=== PATIENT | male | born 1950 | race Caucasian/White ===

== ENCOUNTER 2017-04-03 11:37 | Emergency (ER) | payer MEDICARE ==
[2017-04-03 11:52] VITALS: BMI 34.9
[2017-04-03 11:53] VITALS: BP 165/88; PULSE 94; RESP 16; TEMP 98.5; O2SAT 96
[2017-04-03] MEDS ORDERED: Oxycodone/Acetaminophen 5/325 mg Tab PO STA (12:21)
--- NOTE | 2017-04-03 12:30 | ED PDOC ---
Lower Extremity Pain/Injury Time Seen by Provider: 04/03/17 12:04 Chief Complaint (Nursing): Lower Extremity Problem/Injury Chief Complaint (Provider): Lower extremity problem History Per: Patient History/Exam Limitations: no limitations Onset/Duration Of Symptoms: Days (x2 weeks) Additional Complaint(s): Zack Wells is a 66 year old male, with no past medical history, who presents to the emergency department complaining of a constant right knee pain onset for 2 weeks. Patient states he couldn't see last night because of the pain. He took tylenol with no relief. Patient took his blood pressure at home and it was high which prompted him to visit the ER. When he got here his blood pressure was better. Patient denies trauma, paresthesia or numbness. PMD: None provided. Past Medical History Reviewed: Historical Data, Nursing Documentation, Vital Signs Vital Signs: Last Vital Signs Temp 98.5 F 04/03/17 11:52 Pulse 94 H 04/03/17 11:52 Resp 16 04/03/17 11:52 BP 165/88 H 04/03/17 11:52 Pulse Ox 96 04/03/17 11:52 - Medical History PMH: HTN, Hypercholesterolemia - Surgical History Surgical History: Appendectomy - Family History Family History: States: Unknown Family Hx - Social History Current smoker - smoking cessation education provided: Yes (Some days) Alcohol: Social Drugs: Denies - Home Medications Home Medications: Ambulatory Orders Medication Instructions Recorded Dicyclomine [Bentyl] 20 mg PO Q12 PRN #20 tab 09/17/14 Ondansetron [Zofran Odt] 4 mg PO Q6 PRN #12 odt 09/17/14 Naproxen [Naprosyn] 500 mg PO BID PRN #20 tablet 12/11/15 Acetaminophen with Codeine 1 tab PO Q6H PRN #10 tab 04/03/17 [Tylenol with Codeine No. 3 300 mg-30 mg] Naproxen [Naprosyn] 500 mg PO BID PRN #15 tablet 04/03/17 - Allergies Allergies/Adverse Reactions: Allergies Allergy/AdvReac Type Severity Reaction Status Date / Time No Known Allergies Allergy Verified 09/16/14 21:44 Review of Systems ROS Statement: Except As Marked, All Systems Reviewed And Found Negative Constitutional: Negative for: Other (trauma) Musculoskeletal: Positive for: Leg Pain (right knee pain) Neurological: Negative for: Numbness, Other (Paresthesia) Physical Exam - Reviewed Nursing Documentation Reviewed: Yes Vital Signs Reviewed: Yes - Physical Exam Appears: Positive for: Well, Non-toxic, No Acute Distress (No painful distress) Head Exam: Positive for: ATRAUMATIC, NORMAL INSPECTION, NORMOCEPHALIC Skin: Positive for: Normal Color, Warm, Dry Eye Exam: Positive for: Normal appearance Neck: Positive for: Normal, Painless ROM, Supple Cardiovascular/Chest: Positive for: Regular Rate, Rhythm. Negative for: Murmur Respiratory: Positive for: Normal Breath Sounds. Negative for: Respiratory Distress Pulses-Dorsalis Pedis (L): 2+ Pulses-Dorsalis Pedis (R): 2+ Back: Positive for: Normal Inspection (No midline tenderness). Negative for: L CVA Tenderness, R CVA Tenderness Extremity: Positive for: Tenderness (right medial knee tenderness w/ minimal edema. ). Negative for: Other (No cap tenderness. Sensation intact ) Neurologic/Psych: Positive for: Alert, Oriented. Negative for: Motor/Sensory Deficits - ECG O2 Sat by Pulse Oximetry: 96 (RA) Pulse Ox Interpretation: Normal Medical Decision Making Medical Decision Making: Initial Impressin: Knee pain Initial Plan: --Knee 3 views Right [RAD] --Toradol 30 mg IM --Percocet 5/325 mg Tab 1 tab PO --reevaluation 1450 Right Knee X-Ray FINDINGS: BONES: Normal. No fracture. JOINTS: Normal. No osteoarthritis. JOINT EFFUSION: None. OTHER FINDINGS: None. IMPRESSION: Normal radiographs of the right knee. Scribe Attestation: Documented by Howard Chao, acting as a scribe for Melinda Carson MD Provider Scribe Attestation: All medical record entries made by the Scribe were at my direction and personally dictated by me. I have reviewed the chart and agree that the record accurately reflects my personal performance of the history, physical exam, medical decision making, and the department course for this patient. I have also personally directed, reviewed, and agree with the discharge instructions and disposition. Disposition - Clinical Impression Clinical Impression: Knee pain - Disposition Referrals: [facility] [Outside] Disposition: Routine/Home Disposition Time: 15:05 Condition: STABLE Prescriptions: Acetaminophen with Codeine [Tylenol with Codeine No. 3 300 mg-30 mg] 1 tab PO Q6H PRN #10 tab PRN Reason: Pain, Severe (8-10) Naproxen [Naprosyn] 500 mg PO BID PRN #15 tablet PRN Reason: Pain, Moderate (4-7) Instructions: Arthralgia (ED) Forms: [employer] (Yi) Print Language: CHINESE
[2017-04-03] MEDS ORDERED: Oxycodone/Acetaminophen 5/325 mg Tab ONE (12:56)
--- NOTE | 2017-04-03 14:51 | RAD ---
PROCEDURE: Right Knee Radiographs. HISTORY: Knee pain X 2 weeks COMPARISON: None. FINDINGS: BONES: Normal. No fracture. JOINTS: Normal. No osteoarthritis. JOINT EFFUSION: None. OTHER FINDINGS: None. IMPRESSION: Normal radiographs of the right knee.
== END 2017-04-03 15:16 | disposition home or self-care (01) ==
LOC: H.ER 11:37
DX: M25.561 Pain in right knee (principal)
CPT/HCPCS: 73562; 96372; 99283; J1885

== ENCOUNTER 2018-02-14 14:10 | Emergency (ER) | payer MEDICARE ==
[2018-02-14 14:10] VITALS: BMI 34.9
[2018-02-14 14:22] VITALS: RESP 16; TEMP 98; O2SAT 98
--- NOTE | 2018-02-14 15:28 | ED PDOC ---
HPI: Hypertension/Hypotension Time Seen by Provider: 02/14/18 15:12 Chief Complaint (Nursing): High Blood Pressure Chief Complaint (Provider): Dizziness History Per: Patient History/Exam Limitations: no limitations Onset/Duration Of Symptoms: Hrs Current Symptoms Are (Timing): Still Present Associated Symptoms: Dizziness, Other (shortness of breath) Additional History Per: Patient Additional Complaint(s): 67yo male, history of hypertension (not on medications), comes to ER for evaluation of dizziness earlier today when he changed position from laying down to sitting up. Patient states he felt short of breath as well but currently states he is asymptomatic. He denies any headache, chest pain, nausea or vomiting. He has no additional medical complaints. PMD: None Past Medical History Reviewed: Historical Data, Nursing Documentation, Vital Signs Vital Signs: Last Vital Signs Temp 98.0 F 02/14/18 14:20 Pulse 89 02/14/18 14:20 Resp 16 02/14/18 14:20 BP 136/77 02/14/18 14:20 Pulse Ox 98 02/14/18 14:20 - Medical History PMH: HTN, Hypercholesterolemia - Surgical History Surgical History: Appendectomy - Family History Family History: States: No Known Family Hx - Living Arrangements Living Arrangements: With Family - Home Medications Home Medications: Ambulatory Orders Medication Instructions Recorded Dicyclomine [Bentyl] 20 mg PO Q12 PRN #20 tab 09/17/14 Ondansetron [Zofran Odt] 4 mg PO Q6 PRN #12 odt 09/17/14 Naproxen [Naprosyn] 500 mg PO BID PRN #20 tablet 12/11/15 Acetaminophen with Codeine 1 tab PO Q6H PRN #10 tab 04/03/17 [Tylenol with Codeine No. 3 300 mg-30 mg] Naproxen [Naprosyn] 500 mg PO BID PRN #15 tablet 04/03/17 - Allergies Allergies/Adverse Reactions: Allergies Allergy/AdvReac Type Severity Reaction Status Date / Time No Known Allergies Allergy Verified 09/16/14 21:44 Review of Systems ROS Statement: Except As Marked, All Systems Reviewed And Found Negative Constitutional: Negative for: Fever, Chills Cardiovascular: Negative for: Chest Pain Respiratory: Positive for: Shortness of Breath (now resolved) Gastrointestinal: Negative for: Vomiting, Diarrhea Neurological: Positive for: Dizziness (now resolved). Negative for: Headache Physical Exam - Reviewed Nursing Documentation Reviewed: Yes Vital Signs Reviewed: Yes - Physical Exam Appears: Positive for: Non-toxic, No Acute Distress Head Exam: Positive for: ATRAUMATIC, NORMAL INSPECTION, NORMOCEPHALIC Skin: Positive for: Normal Color Eye Exam: Positive for: Normal appearance, EOMI, PERRL. Negative for: Nystagmus Neck: Positive for: Normal, Supple Cardiovascular/Chest: Positive for: Regular Rate, Rhythm. Negative for: Murmur Respiratory: Positive for: Normal Breath Sounds. Negative for: Wheezing Pulses-Radial (L): 2+ Pulses-Radial (R): 2+ Gastrointestinal/Abdominal: Positive for: Normal Exam, Soft. Negative for: Tenderness, Guarding, Rebound Back: Positive for: Normal Inspection Extremity: Positive for: Normal ROM. Negative for: Pedal Edema Neurologic/Psych: Positive for: Alert, Oriented. Negative for: Motor/Sensory Deficits - Laboratory Results Result Diagrams: 02/14/18 16:00 02/14/18 16:00 - ECG ECG: Positive for: Interpreted By Me, Viewed By Me ECG Rhythm: Positive for: Normal QRS, Normal ST Segment, Sinus Rhythm, 1st Degree Heart Block Rate: 71 O2 Sat by Pulse Oximetry: 98 (RA) Pulse Ox Interpretation: Normal - Progress Re-evaluation Time: 19:06 Condition: Re-examined, Improved Medical Decision Making Medical Decision Making: Impression: Dizziness Differential: Hypertensive urgency, BPV, less likely central vertigo associated with posterior cerebellar circulation Plan: -- Labs -- EKG -- CT head w/o contrast 1443 CT Head FINDINGS: HEMORRHAGE: No intracranial hemorrhage. BRAIN: Chao-white matter differentiation is preserved. There is no mass, mass effect or abnormal extra-axial fluid collection. There is no territorial infarction. The midline sagittal structures are normal. VENTRICLES: The ventricles are normal in size, shape and configuration. CALVARIUM: The skull base and calvarium are normal. PARANASAL SINUSES: There is mild mucosal thickening in the right inferior maxillary sinus. The remaining included paranasal sinuses are clear. MASTOID AIR CELLS: Predominantly clear. OTHER FINDINGS: None. IMPRESSION: No acute intracranial abnormality. Scribe Attestation: Documented by Ashley Luevano, acting as a scribe for Rm Lemon MD. Provider Scribe Attestation: All medical record entries made by the Jose Gibe were at my direction and personally dictated by me. I have reviewed the chart and agree that the record accurately reflects my personal performance of the history, physical exam, medical decision making, and the department course for this patient. I have also personally directed, reviewed, and agree with the discharge instructions and disposition. Disposition - Clinical Impression Clinical Impression: Dizziness - Patient ED Disposition Is Patient to be Admitted: No Doctor Will See Patient In The: Office Counseled Patient/Family Regarding: Studies Performed, Diagnosis, Need For Followup - Disposition Referrals: [facility] [Outside] Disposition: Routine/Home Disposition Time: 19:06 Condition: GOOD Additional Instructions: Return for worsening. Follow up with your PCP in 2-3 days. Instructions: Dizziness, Nonvertigo, (DC), High Blood Pressure in Adults
--- NOTE | 2018-02-14 15:59 | CT ---
Date of service: 02/14/2018 PROCEDURE: CT HEAD WITHOUT CONTRAST. HISTORY: Dizziness COMPARISON: None available. TECHNIQUE: Axial computed tomography images were obtained through the head/brain without intravenous contrast. Radiation dose: Total exam DLP = 833.91 mGy-cm. This CT exam was performed using one or more of the following dose reduction techniques: Automated exposure control, adjustment of the mA and/or kV according to patient size, and/or use of iterative reconstruction technique. FINDINGS: HEMORRHAGE: No intracranial hemorrhage. BRAIN: Chao-white matter differentiation is preserved. There is no mass, mass effect or abnormal extra-axial fluid collection. There is no territorial infarction. The midline sagittal structures are normal. VENTRICLES: The ventricles are normal in size, shape and configuration. CALVARIUM: The skull base and calvarium are normal. PARANASAL SINUSES: There is mild mucosal thickening in the right inferior maxillary sinus. The remaining included paranasal sinuses are clear. MASTOID AIR CELLS: Predominantly clear. OTHER FINDINGS: None. IMPRESSION: No acute intracranial abnormality.
[2018-02-14 16:28] LABS: BASO % 0.5 % (0.0-2.0); EOS # 0.1 K/uL (0.0-0.7); EOS % 1.7 % (0.0-4.0); LYMPH % 37.1 % (20.0-40.0); MEAN CORPUSCULAR HGB CONC 34.1 g/dL (33.0-37.0); MONO # 0.5 K/uL (0.0-0.8); MONO % 10.1 % (0.0-10.0); NEUT # 2.7 K/uL (1.8-7.0); NEUT % 50.6 % (50.0-75.0); NRBC % 0.1 % (0.0-0.0); RBC 4.36 Mil/uL (4.40-5.90); RED CELL DISTRIBUTION WIDTH 13.2 % (11.5-14.5); WHITE BLOOD COUNT 5.3 K/uL (4.8-10.8)
[2018-02-14 16:45] LABS: BLOOD UREA NITROGEN 19 mg/dl (9-20); CALCIUM 8.8 mg/dL (8.4-10.2); GFR AFRICAN-AMERICAN > 60; GFR NON-AFRICAN AMERICAN > 60
[2018-02-14 19:07] VITALS: PULSE 71
[2018-02-14 19:14] VITALS: BP 124/74
--- NOTE | 2018-02-15 08:33 | CARD ---
APPROVED REPORT Date of service: 02/14/2018 <Conclusion> Sinus rhythm with 1st degree AV block Otherwise normal ECG
== END 2018-02-14 19:13 | disposition home or self-care (01) ==
LOC: H.ER 14:10
DX: R42 Dizziness and giddiness (principal); I10 Essential (primary) hypertension; E78.00 Pure hypercholesterolemia, unspecified

== ENCOUNTER 2018-06-12 15:48 | Emergency (ER) | payer MEDICARE ==
[2018-06-12 15:48] VITALS: BMI 34.9
[2018-06-12 16:04] VITALS: TEMP 98.1; O2SAT 99
--- NOTE | 2018-06-12 17:04 | ED PDOC ---
HPI: Hypertension/Hypotension Time Seen by Provider: 06/12/18 16:14 Chief Complaint (Nursing): High Blood Pressure Chief Complaint (Provider): High Blood Pressure History Per: Patient History/Exam Limitations: no limitations Onset/Duration Of Symptoms: Hrs Current Symptoms Are (Timing): Better Associated Symptoms: Dizziness Additional Complaint(s): 67 y/o male with a PMHx of HTN presents to the ED for evaluation of high blood pressure, onset earlier today. Patient states his blood pressure was high today at around 170. Patient reports high blood pressure was associated with dizziness. Denies nausea, vomiting and diarrhea. PMD: none Past Medical History Reviewed: Historical Data, Nursing Documentation, Vital Signs Vital Signs: Last Vital Signs Temp 98.1 F 06/12/18 16:01 Pulse 98 H 06/12/18 16:01 Resp 20 06/12/18 16:01 BP 146/93 H 06/12/18 16:34 Pulse Ox 99 06/12/18 16:01 - Medical History PMH: HTN, Hypercholesterolemia - Surgical History Surgical History: Appendectomy Other surgeries: Finger Surgery (30 years ago) - Family History Family History: States: Unknown Family Hx - Social History Drugs: Other (Occasional marijuana) - Immunization History Hx Tetanus Toxoid Vaccination: No Hx Influenza Vaccination: Yes Hx Pneumococcal Vaccination: No - Home Medications Home Medications: Ambulatory Orders Medication Instructions Recorded Dicyclomine [Bentyl] 20 mg PO Q12 PRN #20 tab 09/17/14 Ondansetron [Zofran Odt] 4 mg PO Q6 PRN #12 odt 09/17/14 Naproxen [Naprosyn] 500 mg PO BID PRN #20 tablet 12/11/15 Acetaminophen with Codeine 1 tab PO Q6H PRN #10 tab 04/03/17 [Tylenol with Codeine No. 3 300 mg-30 mg] Naproxen [Naprosyn] 500 mg PO BID PRN #15 tablet 04/03/17 - Allergies Allergies/Adverse Reactions: Allergies Allergy/AdvReac Type Severity Reaction Status Date / Time No Known Allergies Allergy Verified 09/16/14 21:44 Review of Systems ROS Statement: Except As Marked, All Systems Reviewed And Found Negative Constitutional: Positive for: Other (high blood pressure) Neurological: Positive for: Dizziness Physical Exam - Reviewed Nursing Documentation Reviewed: Yes Vital Signs Reviewed: Yes - Physical Exam Appears: Positive for: No Acute Distress Head Exam: Positive for: ATRAUMATIC, NORMOCEPHALIC Skin: Positive for: Normal Color, Warm, Dry Eye Exam: Positive for: Normal appearance - ECG O2 Sat by Pulse Oximetry: 99 (RA) Pulse Ox Interpretation: Normal Medical Decision Making Medical Decision Making: Time: 1705 -- Patient reports of feeling better at this time. Patient's blood pressure s 146/93. Patient advised to take HTN medications as instructed. Scribe Attestation: Documented by Toshia Ro, acting as a scribe for Frieda Conroy MD. Provider Scribe Attestation: All medical record entries made by the Scribe were at my direction and personally dictated by me. I have reviewed the chart and agree that the record accurately reflects my personal performance of the history, physical exam, medical decision making, and the department course for this patient. I have also personally directed, reviewed, and agree with the discharge instructions and disposition. Disposition - Disposition
[2018-06-12 17:23] VITALS: BP 150/89; PULSE 90; RESP 17
== END 2018-06-12 17:26 | disposition home or self-care (01) ==
LOC: H.ER 15:48
DX: I10 Essential (primary) hypertension (principal); E78.00 Pure hypercholesterolemia, unspecified